=== PATIENT | male | born 1970 | race Caucasian/White ===

== ENCOUNTER → 2019-12-03 | Outpatient (CLI) | payer OTHER ==
[~2019-12-03] MED LIST: COLACE100 MG PO; NORCO 5-325 TA1 EACH PO
--- NOTE | 2019-12-03 15:01 | 2DMMODE ---
[place] [address] 2 D/M-MODE ECHOCARDIOGRAM Name: RUIZFLOR E Room: [facility]#: [id number] Admission: 12/03/19 Attend Phys: Everardo Maciel Discharge: Date of : 66 Date of Service: 12/03/19 1459 Report #: [id number] THIS REPORT FOR: cc: Liliana Ramirez Linda J. DO Liston, Michael J. MD [facility] ~ APPROVED REPORT Study performed: 12/03/2019 09:08:55 EXAM: Comprehensive 2D, Doppler, and color-flow Echocardiogram Patient Location: Out-Patient Status: routine BSA: 2.31 HR: 85 bpm BP: 124/70 mmHg Rhythm: NSR Other Information Study Quality: Good 2D Dimensions IVSd: 12.28 (7-11mm) LVOT Diam: 21.67 (18-24mm) LVDd: 51.31 mm PWd: 10.55 (7-11mm) Ascending Ao: 32.36 (22-36mm) LVDs: 28.65 (25-40mm) Aortic Root: 33.40 mm Volumes Left Atrial Volume (Systole) LA ESV Index: 45.60 mL/m2 Aortic Valve AoV Peak Ty.: 1.30 m/s AO Peak Gr.: 6.80 mmHg LVOT Max P.72 mmHg AO Mean Gr.: 4.15 mmHg LVOT Mean P.88 mmHg LVOT Max V: 1.20 m/s AO V2 VTI: 22.62 cm LVOT Mean V: 0.79 m/s GRAYSON (VTI): 3.32 cm2 LVOT V1 VTI: 20.37 cm Mitral Valve E/A Ratio: 1.44 MV Decel. Time: 203.30 [place] [address] 2 D/M-MODE ECHOCARDIOGRAM Name: FLOR RUIZ Room: [facility]#: [id number] Admission: 12/03/19 Attend Phys: Everardo Maciel Discharge: Date of : 66 Date of Service: 12/03/19 1459 Report #: [id number] MV E Max Ty.: 1.04 m/s MV PHT: 58.96 ms MVA (PHT): 3.73 cm2 TDI E/Lateral E': 8.00 E/Medial E': 7.43 Medial E' Ty.: 0.14 m/s Lateral E' Ty.: 0.13 m/s Pulmonary Valve PV Peak Ty.: 0.97 m/s PV Peak Gr.: 3.75 mmHg Left Ventricle The left ventricle is normal size. There is normal LV segmental wall motion. There is normal left ventricular wall thickness. Left ventricular systolic function is normal. LVEF is 60-65%. The left ventricular diastolic function is normal. Right Ventricle The right ventricle is normal size. The right ventricular systolic function is normal. Atria Left atrium is moderately dilated. The right atrium size is normal. Aortic Valve The aortic valve is normal in structure. No aortic regurgitation is present. There is no aortic valvular stenosis. Mitral Valve There is moderate prolapse of the posterior mitral valve leaflet appears partially flail. Severe mitral regurgitation. No evidence of mitral valve stenosis. Tricuspid Valve The tricuspid valve is normal in structure. Trace tricuspid regurgitation. Pulmonic Valve The pulmonary valve is normal in structure. There is no pulmonic valvular regurgitation. Great Vessels The aortic root is normal in size. IVC is normal in size and collapses >50% [place] [address] 2 D/M-MODE ECHOCARDIOGRAM Name: FLOR RUIZ [id number] Admission: 12/03/19 Attend Phys: Everardo Maciel Discharge: Date of : 66 Date of Service: 12/03/19 1459 Report #: [id number] Pericardium There is no pericardial effusion. <Conclusion> The left ventricle is normal size. There is normal left ventricular wall thickness. Left ventricular systolic function is normal. LVEF is 60-65%. The left ventricular diastolic function is normal. Left atrium is moderately dilated. There is moderate prolapse of the posterior mitral valve leaflet appears partially flail. Severe mitral regurgitation. IVC is normal in size and collapses >50% with inspiration. <ELECTRONICALLY SIGNED> By: Freddy Cobian MD, FACC 12/03/19 1459 1459 1459 Freddy Cobian MD, FACC /INF
== END ==
LOC: M.CRD 08:44
DX: I34.0 Nonrheumatic mitral (valve) insufficiency (principal)

== ENCOUNTER → 2019-12-17 | Outpatient (CLI) | payer OTHER ==
[2019-12-17] VITALS (15 sets, daily range): BP systolic 113–151; BP diastolic 70–92
[~2019-12-17] VITALS: Ht 193 cm; Wt 102.1 kg
[2019-12-17 09:27] LABS: HEMATOCRIT 42.3 % (42.0-52.0); HEMOGLOBIN 15.4 gm/dL (14.0-18.0); MCH 32.7 pg (26.0-34.0); MCHC 36.5 g/dL (28.0-37.0); MCV 89.4 fL (80.0-100.0); RBC 4.72 mil/uL (4.50-6.00); WBC 3.5 thou/uL (4.0-11.0)
[2019-12-17 09:36] LABS: ANION GAP 8 mmol/L (7-16); BUN 18 mg/dL (7-18); CALCIUM 8.9 mg/dL (8.5-10.1); CHLORIDE 105 mmol/L (98-107); CO2 26 mmol/L (21-32); CREATININE 1.2 mg/dL (0.6-1.3); GLUCOSE 105 mg/dL (70-99); POTASSIUM 3.9 mmol/L (3.5-5.1); SODIUM 139 mmol/L (136-145)
[2019-12-17 09:39] LABS: APTT 27.3 Seconds (25.0-31.3); PROTIME 10.6 Seconds (9.20-11.50)
[2019-12-17 09:40] LABS: ALKALINE PHOSPHATASE 52 U/L (46-116); CHOLESTEROL 143 mg/dL (<200); HDL CHOLESTEROL 46 mg/dL (>40); LDL CHOLESTEROL 84 mg/dL (<100); SGOT 17 U/L (15-37); SGPT 31 U/L (30-65); TC:HDL 3.1 Ratio (Not establshd); TOTAL BILIRUBIN 0.6 mg/dL (<0.1-1.0); TOTAL PROTEIN 7.6 g/dL (6.4-8.2); TRIGLYCERIDE 66 mg/dL (<150); VLDL 13 mg/dL (<40)
[2019-12-17 09:42] LABS: SERUM ASSESSMENT Clear
--- NOTE | 2019-12-17 11:40 | EKG ---
[place] [address] ELECTROCARDIOGRAM REPORT Name: FLOR RUIZ Room: [facility]#: [id number] Admission: 12/17/19 Attend Phys: Freddy Cobian, Discharge: Date of : 66 Date of Service: 12/17/19926 Report #: [id number] THIS REPORT FOR: //name// [facility] Test Date: 2019-12-17 Test Time: 09:27:22 Pat Name: FLOR RUIZ Department: Room: Gender: Health Specialist: : 1970 Requested By: Freddy Cobian Order Number: [id number] Manju MD: Freddy Cobian Measurements Intervals [place] Rate: 77 P: 59 [place]: 174 QRS: 29 QRSD: 110 T: 45 QT: 388 QTc: 440 Interpretive Statements Sinus rhythm Abnormal R-wave progression, early transition No previous ECG available for comparison Electronically Signed On 12-17-2019 11:39:18 CDT by Freddy Cobian [email or web address] <ELECTRONICALLY SIGNED> By: Freddy Cobian MD, [facility] 12/17/19 1139 6 6 Freddy Cobian MD, FACC /EPI
--- NOTE | 2019-12-17 13:48 | TEE ---
[place] [address] TRANSESOPHAGEAL ECHOCARDIOGRAM Name: RUIZFLOR E Room: [facility]#: [id number] Admission: 12/17/19 Attend Phys: Freddy Cobian, Discharge: Date of : 66 Date of Service: 12/17/19 1346 Report #: [id number] THIS REPORT FOR: cc: Liliana Ramirez Linda J. DO Liston, Michael J. MD [facility] ~ APPROVED REPORT Study performed: 12/17/2019 11:06:09 EXAM: Transesophageal Echocardiogram Patient Location: Out-Patient Status: routine BSA: 2.33 HR: 96 bpm BP: 151/88 mmHg Rhythm: NSR Other Information Study Quality: Good Indications Torn mitral valve Echo Enhancing Agent Indication: Rule out Shunt Agent(s) / Amount(s) Used: Agitated Saline 10 cc Procedure After obtaining informed consent, patient underwent transesophageal echo in the [employer] [facility] [employer]. Type of Sedation : Conscious Sedation Sedation was administered by Diana Ochoa RN. Sedation start time: 1114 Case end Time: 1133 Sedation was achieved intravenously with: Versed (6) Fentanyl (175) Transesophageal probe was inserted and advanced into esophagus without difficulty by Freddy Cobian MD, [facility]. Echo enhancement indication: R/O Septal defect. Echo enhancement agent administered: Agitated Saline The ABDULKADIR was performed without complications. Throughout the procedure, the blood pressure, pulse oximetry, cardiac rhythm, and rate were monitored. The patient tolerated the procedure without [place] [address] TRANSESOPHAGEAL ECHOCARDIOGRAM Name: FLOR RUIZ Room: [facility]#: [id number] Admission: 12/17/19 Attend Phys: Freddy Cobian, Discharge: Date of : 66 Date of Service: 12/17/19 1346 Report #: [id number] from conscious sedation was uneventful and vital signs were stable. Left Ventricle The left ventricle is normal size. There is normal LV segmental wall motion. There is normal left ventricular wall thickness. Left ventricular systolic function is normal. LVEF is 65-70%. Right Ventricle The right ventricle is normal size. The right ventricular systolic function is normal. Atria Left atrium is mildly dilated. No thrombus is visualized in the left atrium or appendage. The interatrial septum is intact with no evidence for an atrial septal defect. The right atrium size is normal. Aortic Valve The aortic valve is normal in structure. No aortic regurgitation is present. There is no aortic valvular stenosis. Mitral Valve The mitral valve leaflets are normal in thickness. Severe mitral regurgitation. No evidence of mitral valve stenosis. Posterior mitral valve leaflet is partially flail. (P1, Anterolateral scallop). Tricuspid Valve The tricuspid valve is normal in structure. Mild tricuspid regurgitation. Pulmonic Valve The pulmonary valve is normal in structure. There is no pulmonic valvular regurgitation. Great Vessels The aortic root is normal in size. Pericardium There is no pericardial effusion. <Conclusion> The left ventricle is normal size. There is normal left ventricular wall thickness. Left ventricular [place] [address] TRANSESOPHAGEAL ECHOCARDIOGRAM Name: MERLIN RUIZFLOR E Room: [facility]#: [id number] Admission: 12/17/19 Attend Phys: Freddy Cobian, Discharge: Date of : 66 Date of Service: 12/17/19 1346 Report #: [id number] LVEF is 65-70%. Left atrium is mildly dilated. No thrombus is visualized in the left atrium or appendage. The interatrial septum is intact with no evidence for an atrial septal defect. Posterior mitral valve leaflet is partially flail. (P1, Anterolateral scallop). The mitral valve leaflets are normal in thickness. Severe mitral regurgitation. Mild tricuspid regurgitation. <ELECTRONICALLY SIGNED> By: Freddy Cobian MD, [facility] 12/17/19 1346 1346 1346 Freddy Cobian MD, FACC /INF
--- NOTE | 2019-12-17 16:26 | CARD ---
[address] [address] CARDIAC CATH REPORT Name: FLOR RUIZ Room: [facility]#: [id number] Admission: 12/17/19 Attend Phys: Freddy Cobian MD Discharge: Date of : 66 Report #: [id number] THIS REPORT FOR: //name// cc: Liliana Ramirez Linda J. DO ~ APPROVED REPORT Study performed: 12/17/2019 09:52:23 Patient Details Patient Status: Out-Patient Room #: The patient is a 49 year-old male Event Personnel Freddy Cobian Warehouser, Deejay Zacarias RN Alodize Machine Operator, Sawyer Kohli RTR Scrub, Heather Burkett RTR Monitor Procedures Performed Art Access - R radial artery , Left Heart Cath w/or w/o Coronaries LHC, Hemostasis with Hemoband Indication Preoperative evaluation for possible mitral valve repair. Risk Factors None. Previous Procedures/Diagnoses None. Admission/Lab Medications/Medications given during procedure Oxygen Nasal cannula 2 l per min, Lidocaine Subcut 6 ml, Nitroglycerin IA 400 mcg total, Verapamil IA 5 mg total, Heparin IV 5000 units Procedure Narrative The patient was brought electively to the Cardiac Catheterization Laboratory and was prepped and draped in a sterile manner. The right wrist was infiltrated with 2% Lidocaine subcutaneous anesthesia. A 6F Slender Glidesheath sheath was inserted into the right radial artery. Coronary angiography was performed using coronary diagnostic catheters. The right coronary system was accessed and visualized with a 5F Etlan 4.0 catheter. The left coronary system was accessed and visualized with a 5F Etlan 4.0 catheter. Left ventricular/Aortic Valve gradient assessed via catheter [place] [address] CARDIAC CATH REPORT Name: FLOR RUIZ Room: [facility]#: [id number] Admission: 12/17/19 Attend Phys: Freddy Cobian MD Discharge: Date of : 66 Report #: [id number] the procedure well and there were no complications associated with the procedure. There was no hematoma. The left ventricle was accessed and pressures recorded with a 5F Etlan 4.0 catheter. 24 cm Vasc band closure device deployed right radial artery. Intraoperative Conscious Sedation Sedation start time: 11:59 Case end Time: 12:19 Patient had conscious sedation during ABDULKADIR, which was performed prior to the Cath. No additional sedation given during Cath. Fluoro Time: 2.0 minutes Dose: DAP 73773 cGycm2 378 mGy Contrast Type and Amount: Visipaque 70 ml Coronary Angiography The patient's coronary anatomy is right dominant. Diagnostic Cath Left Main The left main coronary artery is short and normal. The left main bifurcates into the LAD and circumflex coronary arteries. LAD The LAD is normal in its proximal mid and distal portion. Diagonal 1 A small proximal diagonal branch is normal. Diagonal 2 Immediately after the first diagonal there is a large branched second diagonal is normal. Circumflex The circumflex coronary artery appears normal in its proximal mid and distal portion. OM1 The first obtuse marginals a large branching vessel that is normal. OM2 The second obtuse marginal is a small bifurcating branch that is normal. Right Coronary The right coronary artery is normal in its proximal mid and distal portion. R PDA Posterior descending artery is normal in its proximal mid and distal portion. RPLV A branched posterior lateral artery vessel is normal in its proximal mid and distal portions. Left Ventriculography Left Ventriculography was not performed. Hemodynamics The aortic pressure is 114/77 mmHg with a mean of 93 mmHg. The left ventricular pressure is 113/13 mmHg with [place] [address] CARDIAC CATH REPORT Name: FLOR RUIZ Room: [facility]#: [id number] Admission: 12/17/19 Attend Phys: Freddy Cobian MD Discharge: Date of : 66 Report #: [id number] ventricular end diastolic pressure is 20 mmHg. Conclusion 1. Normal coronary arteries. 2. Mildly elevated left ventricular end-diastolic pressure consistent with acute on chronic diastolic heart failure. Recommendations 1. Continue aggressive risk factor modification and medical treatment for diastolic heart failure. <ELECTRONICALLY SIGNED> By: Freddy Cobian MD, FACC 12/17/19 1625 1625 1625Michael Kamaljit Cobian MD, [facility] /INF
== END ==
LOC: M.CL 12-09 16:04
PROVIDERS: Internal Medicine Cardiovascular Disease
DX: I08.1 Rheumatic disorders of both mitral and tricuspid valves (principal); I50.33 Acute on chronic diastolic (congestive) heart failure; Z79.899 Other long term (current) drug therapy; Z87.891 Personal history of nicotine dependence; Z98.890 Other specified postprocedural states